=== PATIENT | male | born 1970 | race Caucasian/White ===

== ENCOUNTER → 2022-12-27 12:19 | Outpatient (BNVA) | payer SELFPAY | PROVIDERS: PCP Family Medicine; Visit Provider Physician Assistant | DX: Z02.79 Encounter for issue of other medical certificate (principal) ==

== ENCOUNTER 2023-07-24 08:47 | Emergency (ER) | payer OTHER, SELFPAY ==
--- NOTE | 2023-07-24 08:50 | ECG_ITS ---
Test Reason : cp Blood Pressure : / mmHG Vent. Rate : 067 BPM Atrial Rate : 067 BPM P-R Int : 154 ms QRS Dur : 096 ms QT Int : 398 ms P-R-T Axes : 022 -16 141 degrees QTc Int : 420 ms Normal sinus rhythm Minimal voltage criteria for LVH, may be normal variant ( [place] product ) T wave abnormality, consider anterolateral ischemia Abnormal ECG No previous ECGs available Referred By: Generic ED Physician Electronically Signed By:GIGI WEBSTER
[2023-07-24 08:53] VITALS: BP 166/111; PULSE 68; RESP 18; TEMP 36.7; O2SAT 97; BMI 29.3
[2023-07-24 09:26] LABS: MANUAL DIFF FLAG NO
--- NOTE | 2023-07-24 09:27 | ED_ITS ---
HPI - Chest Pain General Chief Complaint: Chest Pain Stated Complaint: Chest Pain Time Seen by Provider: 07/24/23 09:26 Source: patient Mode of arrival: ambulatory Limitations: no limitations History of Present Illness HPI narrative: 53 yo male with history of HTN presents to the ER for evaluation of an intermittent buzzing sensation in his chest along with a 2/10 nonradiating dull pain in the middle of the chest that started about 3 hours ago when he was at work. He states it feels like there is a vibrating iphone on his chest. it comes and goes. No associated SOB, diaphorsis, nausea, abdominal pain. No neck or back pain. No history of similar episodes. He has seen a president and cmo this year for an abnormal EKG, he was asymptomatic and no cardiac workup was indicated at the time. he works as a mechanical engineering draftsperson and does not get any exertion chest pains. he has been compliant with his lisinopril at home. MD complaint: chest pain Onset (ago): hour(s) (3) Timing of current episode: episodic Onset: during rest Pain location: substernal Pain radiation: none Severity: mild Pain scale (0-10): 2 Quality: dull Relieving factors: nothing Exacerbating factors: nothing Treatment prior to arrival: none Risk Factors Coronary artery disease risk factors: hypertension Thoracic aortic dissection risk factors: none Related Data Allergies Allergy/AdvReac Type Severity Reaction Status Date / Time No Known Allergies Allergy Unverified 07/22/20 14:58 [No Known Allergies*] seasonal Allergy Unknown Uncoded 01/13/20 00:00 Review of Systems 2 Review of Systems: Yes all other systems are reviewed and are negative [facility] Social History Social History Alcohol intake: current Alcohol intake frequency: a few times a month Smoked in Last 30 Days: No Use of substances other than those prescribed or required for medical reasons: No Advance Directives: No Physical Exam 2 Vital Signs: Vital Signs: Last Vital Signs Temp 98.1 F 07/24/23 08:53 Pulse 60 07/24/23 14:00 Resp 20 07/24/23 14:00 BP 129/96 H 07/24/23 14:00 Pulse Ox 97 07/24/23 14:00 O2 Del Method Room Air 07/24/23 14:00 BMI result Body Mass Index 29.3 Appearance: Alert. Oriented X3. No acute distress. Head: normocephalic, atraumatic. Eyes: Pupils equal, round and reactive to light. ENT: Pharynx normal. No tonsillar swelling or exudate. Neck: Normal inspection. Neck supple. CVS: Normal heart rate and rhythm. Pulses normal. Respiratory: No respiratory distress. Breath sounds normal. Abdomen: Soft and nontender. +BS x4 Skin: Skin warm and dry. Normal skin color. Normal skin turgor. No rashes. Extremities: No lower extremity edema. No joint swelling. Neuro/psych: Oriented X 3. No motor deficit. No sensory deficit. CN II-XII intact. Normal speech and cognition. Medications Administered Discontinued Medications Generic Name Dose Route Start Last Admin Trade Name Freq PRN Reason Stop Dose Admin Aspirin 81 mg 07/24/23 09:42 07/24/23 09:46 Aspirin 81 Mg Tab.Chew PO 07/24/23 09:43 81 mg ONCE ONE Administration Lisinopril 5 mg 07/24/23 09:42 07/24/23 09:45 Lisinopril 5 Mg Tablet PO 07/24/23 09:43 5 mg ONCE ONE Administration Protocol Medical Decision Making Medical Decision Making [facility] Narrative: 53 yo male with history of HTN presenting with a buzzing sensation in his chest along with nonradiating dull chest discomfort that started a few hours ago. BP elevated on arrival. No headache or vision changes. Took his lisinopril today. EKG has t-wave inversions in V1-V6 which are similar to prior, obtained from [facility] earlier this year. low suspicion for ACS given his description of the symptoms. He states he has been having a sore shoulder for a while thinks it might be muscular. No PE risk factors. Labs show troponin negative x2. Continues to have some intermittent buzzing in the chest but no pain. HEART score 2. He has an outpatient president and cmo. Stable for d/c home with outpatient follow up. patient agree w/ plan and return precautions were discussed Differential Diagnosis Differential Diagnoses: The differential diagnosis associated with the presentation includes anxiety, ACS, myocarditis, pericarditis, MSK pain, neuropathy, muscle spasm, doubt aortic dissection Admission/Observation Consideration of admission/observation: Escalation of care including admission/observation considered Lab Data [facility] Lab Attestation statement: I reviewed the patient's lab results. trop flat x2 07/24/23 09:22 07/24/23 09:22 Labs: Lab Results 07/24/23 07/24/23 Range/Units 09:22 12:34 WBC 5.7 (4.8-10.8) X10*3/uL RBC 4.28 L (4.60-5.80) X10*6/uL Hgb 13.9 L (14.0-18.0) g/dl Hct 39.8 L (42.0-52.0) % MCV 93.0 (80.0-98.0) fL MCH 32.5 (27.0-33.0) pg MCHC 34.9 (31.0-36.0) g/dl RDW 11.9 (11.0-16.0) % Plt Count 136 L (160-400) X10*3/uL MPV 9.4 (9.4-12.4) fL Immature Gran % (Auto) 0.5 H (0.0-0.4) % Neut % (Auto) 62.1 (45-73) % Lymph % (Auto) 21.2 (20-40) % [place] % (Auto) 10.8 (2-11) % Eos % (Auto) 4.7 H (0-4) % Baso % (Auto) 0.7 (0-2) % Lymph # (Auto) 1.2 (1.2-4.9) X10*3/uL [place] # (Auto) 0.6 (0.1-1.2) X10*3/uL Eos # (Auto) 0.3 (0.0-0.4) X10*3/uL Baso # (Auto) 0.0 (0.0-0.2) X10*3/uL Abs Immat Gran (auto) 0.03 (0.00-0.03) X10*3/uL Absolute Neuts (auto) 3.6 (2.0-8.3) x10*3/uL Absolute Nucleated RBC 0.000 (0.0-0.012) X10*3/uL Nucleated RBC % (auto) 0.0 (0.0-0.2) /100WBC Sodium 140 (135-145) mmol/L Potassium 4.3 (3.3-5.1) mmol/L Chloride 108 (96-108) mmol/L Carbon Dioxide 24 (22-29) mmol/L Anion Gap 12 (12-20) BUN 16 (9-16) mg/dL Creatinine 0.94 (0.5-1.4) mg/dL Estim Creat Clear Calc 109.0 Estimated GFR > 60 Random Glucose 113 (60-115) mg/dL Calcium 9.4 (8.4-10.2) mg/dL Troponin I High Sens < 2.7 < 2.7 (<3.5-35.0) ng/L Independent Interpretation I performed an independent interpretation of an: EKG Interpretation: ekg with normal sinus rhythm, HR 67 bpm, t-wave inversions in V1-V6 which were present on prior EKG from February 27 at [facility] Independent Historian Clinical information obtained from an independent historian. History obtained from or confirmed by: Spouse External Record Review External record reviewed: Office record and Outpatient record Prescription Management I considered prescription management with: Other (muscle relaxer) Chronic Conditions Patient?s care impacted by: Hypertension Scores Heart Score History: -0- slightly suspicious ECG: -1- non specific repolarization disturbance (unchanged from prior) Age: -1- >45 - <65 Risk factory: -1- 1 or 2 risk factors Troponin: -0- < or = normal limit Score: 3 Risk: 1.7% Critical Care Time Critical Care Time Critical Care Time: No Discharge Plan Discharge Clinical Impression: Atypical chest pain Patient Disposition: Home, Self-Care Instructions: Noncardiac Chest Pain (ED) Additional Instructions: Your lab workup today was unremarkable. Your EKG was unchanged from prior Recommend following up with your PCP and [employer]. If you develop new or worsening symptoms call 911 or come back to the ER for further evaluation. Stand Alone Forms: Work/School Release Interventions: ED Discharge Assessment Last Done: 07/24/23 14:18 Discharge Date/Time: 07/24/23 14:19
[2023-07-24 09:29] LABS: Basophils Percent Auto 0.7 % (0-2); Eosinophils Absolute Auto 0.3 X10*3/uL (0.0-0.4); Eosinophils Percent Auto 4.7 % (0-4); Hematocrit 39.8 % (42.0-52.0); Hemoglobin 13.9 g/dl (14.0-18.0); Imm Gran Abs Auto 0.03 X10*3/uL (0.00-0.03); Imm Gran Pct Auto 0.5 % (0.0-0.4); Lymphocytes Absolute Auto 1.2 X10*3/uL (1.2-4.9); Lymphocytes Percent Auto 21.2 % (20-40); Mean Corpuscular HGB Conc 34.9 g/dl (31.0-36.0); Mean Corpuscular Hemoglobin 32.5 pg (27.0-33.0); Mean Platelet Volume 9.4 fL (9.4-12.4); Monocytes Absolute Auto 0.6 X10*3/uL (0.1-1.2); Monocytes Percent Auto 10.8 % (2-11); Neutrophils Absolute Auto 3.6 x10*3/uL (2.0-8.3); Neutrophils Percent Auto 62.1 % (45-73); Platelet Count 136 X10*3/uL (160-400); Red Blood Count 4.28 X10*6/uL (4.60-5.80); Red Cell Distribution Width 11.9 % (11.0-16.0); White Blood Count 5.7 X10*3/uL (4.8-10.8)
[2023-07-24 09:35] VITALS: BP 171/101; PULSE 68; RESP 18
--- NOTE | 2023-07-24 09:41 | PC.NURSE ---
provider at bedside. pt a&ox3. respirations even and unlabored. pt reports having a sudden vibration and chest pain in the left side of his chest without radiation. pt reports the vibration comes and goes but the chest pain is constant. pt lung sounds clear bilaterally. pt denies shortness of breath, nausea, vomiting and sweating. pt normal sinus on tele between 65-69.
[2023-07-24] MEDS: lisinopriL 5 MG TABLET PO (09:45)
[2023-07-24] MEDS: Aspirin 81 MG TAB.CHEW PO (09:46)
[2023-07-24 09:49] LABS: Anion Gap 12 (12-20); Blood Urea Nitrogen 16 mg/dL (9-16); Calcium 9.4 mg/dL (8.4-10.2); Carbon Dioxide 24 mmol/L (22-29); Chloride 108 mmol/L (96-108); Estimated Glomerular Filt Rate > 60; Glucose Random 113 mg/dL (60-115); Potassium 4.3 mmol/L (3.3-5.1); Sodium 140 mmol/L (135-145)
[2023-07-24 10:03] LABS: Troponin-I High Sensitivity < 2.7 ng/L (<3.5-35.0)
[2023-07-24 13:07] LABS: Troponin-I High Sensitivity < 2.7 ng/L (<3.5-35.0)
[2023-07-24 14:00] VITALS: BP 129/96; PULSE 60; RESP 20; O2SAT 97
== END 2023-07-24 14:19 | disposition home or self-care (01) ==
PROVIDERS: Physician Assistant; Emergency Provider Emergency Medicine; PCP Family Medicine
DX: R07.89 Other chest pain (principal); I10 Essential (primary) hypertension; Z79.899 Other long term (current) drug therapy
CPT/HCPCS: 36415; 80048; 84484; 85025; 93005; 99283; 99285

== ENCOUNTER → 2024-12-16 08:24 | Outpatient (BNVA) | payer SELFPAY | PROVIDERS: PCP Family Medicine; Visit Provider Registered Nurse | DX: Z02.79 Encounter for issue of other medical certificate (principal) ==